=== PATIENT | female | born 1985 | race African-American/Black ===

== ENCOUNTER 2023-07-28 17:09 | Emergency (ER) | payer MEDICAID ==
[~2023-07-28] VITALS: Ht 162.6 cm; Wt 100.0 kg
[2023-07-28 17:20] VITALS: BP 160/116; PULSE 92; RESP 22; O2SAT 96
== END 2023-07-28 18:32 | disposition left against medical advice (07) ==
LOC: ER 17:09 → EDUNIT# 17:09 → EDBD 17:09 → ER 18:32
DX: R06.02 Shortness of breath (principal); R05.9 Cough, unspecified; Z53.21 Procedure and treatment not carried out due to patient leaving prior to being seen by health care provider